=== PATIENT | male | born 1955 | race Caucasian/White ===

== ENCOUNTER → 2019-11-16 | Outpatient (CLI) | payer OTHER | LOC: CARD 11:18 | PROVIDERS: ATTEND Internal Medicine Cardiovascular Disease | DX: I08.3 Combined rheumatic disorders of mitral, aortic and tricuspid valves (principal); I51.89 Other ill-defined heart diseases; E78.2 Mixed hyperlipidemia; I25.10 Atherosclerotic heart disease of native coronary artery without angina pectoris; I63.9 Cerebral infarction, unspecified; I10 Essential (primary) hypertension | CPT/HCPCS: 93306 ==

== ENCOUNTER → 2019-11-21 | Outpatient (CLI) | payer OTHER ==
[~2019-11-21] VITALS: Ht 180 cm; Wt 71.0 kg
[~2019-11-21] MED LIST: CATHETER FLUSH 10 ML SYR IV PRN; REGADENOSON 0.4 MG/5 ML SYR (LEXISCAN) IV ONE
--- NOTE | 2019-11-21 15:23 | STRESS TEST ---
DATE OF SERVICE: 11/21/2019 LEXISCAN MYOVIEW STRESS TEST REPORT REFERRING PHYSICIAN: No local physician. Baseline heart rate is 64. Baseline blood pressure is 124/83. Baseline EKG is sinus rhythm with no ischemic changes. In summary, the patient was injected with 10.26 mCi of technetium-99 Myoview and the resting images were obtained. Then, the patient received 0.4 mg of Lexiscan followed by 31.1 mCi of technetium-99 Myoview. Throughout the test, there were no EKG changes. Occasional PVCs were noted. The resting and stress images were reviewed and compared in the short axis, horizontal long axis, and vertical long axis views. Review of the images showed fix defect involving the whole inferior wall and inferolateral wall, mild reversibility noted at the inferior apex and true apex. SSS is 26, SDS 28. TID value 1.06. On the gated images, the left ventricle is dilated with hypokinesia noted diffusely more pronounced at the inferior wall. Calculated ejection fraction 38%. CONCLUSION: 1. The patient tolerated Lexiscan well. 2. Diaphragmatic attenuation with fixed defect involving the whole inferior wall, mild ischemia at the inferior apex and true apex. 3. Prominent left ventricle with diffuse left ventricular hypokinesia, more pronounced at the inferior wall. Calculated ejection fraction 38%. Job ID: [id number] DocumentID: [id number] Dictated Date: 11/21/2019 14:27:23 Pest Control Specialist Date: 11/21/2019 15:22:59 Dictated By: NATALIA STEWART MD
== END ==
LOC: CARD 08:16
PROVIDERS: ATTEND Internal Medicine Cardiovascular Disease
DX: I25.10 Atherosclerotic heart disease of native coronary artery without angina pectoris (principal); E78.2 Mixed hyperlipidemia; I63.9 Cerebral infarction, unspecified; I10 Essential (primary) hypertension; I35.0 Nonrheumatic aortic (valve) stenosis
CPT/HCPCS: 78452; 93017